=== PATIENT | female | born 1960 | race Caucasian/White ===

== ENCOUNTER 2025-03-19 03:04 | Day surgery (SDC) | payer MEDICARE, SELFPAY ==
[2025-03-05 15:05] VITALS: BMI 22.4
--- OUTSIDE RECORDS SUMMARY | 2025-03-19 03:07 | XMS_ITS | Clinical Summary ---
Author Organization [facility] Address [address] [place] [id number] Care Team Providers [facility] Name Role Phone Anmol Garcia MD Primary Care Provider [phone] Social History Tobacco Use Types Packs/Day Years Used Date Smoking Tobacco: Never Assessed Comments Unknown Sex and Gender Information Value Date Recorded Sex Assigned at Not on file Legal Sex Female 11:30 AM [employer] TE[employer] Gender Identity Not on file Sexual Orientation Not on file Plan of Treatment Health Maintenance Due Date Last Done Comments Colorectal Cancer Screening Colonoscopy (10 Years) 1958 Hepatitis C 01/26/1976 DTaP, Tdap and Td Vaccines (1 - Tdap) 1977 Mammogram Screening 1998 Annual Medicare Wellness Visit 2023 Dexa Scan (General) 2023 Zoster Vaccines (2 of 2) 10/21/2023 08/26/2023 Pneumococcal Vaccine: 50+ Years (2 of 2 - PCV) 04/26/2024 04/26/2023 COVID-19 Vaccine ( season) 2025 07/25/2024, 08/26/2023, 07/27/2022, Additional history exists RSV Immunization or 60+ Years (1 - 1-dose 75+ series) 2033 Meningococcal B Vaccine Aged Out No l onger eligible based on patient's age to complete this topic Meningococcal Vaccine Aged Out No macy johanne eligible based on patient's age to complete this topic RSV Immunizations Under 20 Months Aged Out No longer eligible based on patient's age to complete this topic Insurance MEDICARE [facility] Care Teams [facility] Relationship Specialty Start Date End Date Anmol Garcia MD [address] [place] [phone] PCP - General FAMILY PRACTICE 12/08/24
[2025-03-19 08:12] VITALS: BP 104/73; PULSE 78; RESP 16; TEMP 36.1; O2SAT 100; BMI 22.5
[2025-03-19] MEDS: LACTATED RINGERS 1,000 ML 150 ML IV CONT (08:23)
--- NOTE | 2025-03-19 08:48 | PM.HPGS ---
History of Present Illness History of Present Illness Consent: Risks, benefits, and alternatives have been discussed and questions answered. Patient agrees to proceed with procedure. Chief complaint: colon polyps,chronic cough, Narrative: Adelaida Yousif is a 65 year old female here for egd and colonoscopy, diagnosed with EoE about 15 years ago when presented to another facility with food bolus, using now ppi daily but last few months not working as well and noted again some dysphagia. History of colon polyp in 2019 Review of Systems Review of Systems: All systems reviewed & are unremarkable except as noted in HPI and below PMFSH Past Medical History Medical History (Updated 03/19/25 @ 08:49 by Elijah Lovett MD) Dysphagia Eosinophilic esophagitis Throat clearing Chronic cough GERD (gastroesophageal reflux disease) History of colon polyps Social History Social History Smoking status: Former smoker Tobacco type: cigarettes Alcohol intake: current Substance use: never Substance use type: does not use Meds Home Medications and Allergies Home Medications ?Medication ?Instructions ?Recorded ?Confirmed ?Type omeprazole 40 mg capsule,delayed 40 mg PO BID 3 months #180 caps 12/25/24 03/19/25 Rx release omeprazole 40 mg capsule,delayed 40 mg PO DAILY 12/25/24 03/05/25 History release Allergies Allergy/AdvReac Type Severity Reaction Status Date / Time No Known Allergies Allergy Verified 03/19/25 08:11 Vital Signs Vital Signs - 24 hr 03/19/25 08:12 Temperature 96.9 F L Pulse Rate 78 Respiratory Rate 16 Blood Pressure 104/73 Pulse Oximetry 100 Oxygen Delivery Room Air Exam Const: General: comfortable and no acute distress HENMT: Face/Nose/Sinus: Normal nares present Eyes: General: appearance normal, both eyes and all related structures Neck: Neck: no JVD Resp: Auscultation: clear to auscultation bilaterally Cardio: Rate: regular rate Rhythm: regular rhythm GI: Inspection: non-distended GI Palp: Yes Soft to palpation Skin: General skin exam: normal color Neuro: General: gait normal Speech: normal speech Extrem: General: normal to inspection Psych: Mental Status: mental status grossly normal Assessment and Plan Assessment and plan (1) Eosinophilic esophagitis: Code(s): K20.0 - Eosinophilic esophagitis Status: Acute Assessment and Plan: ppi is not working as well anymore egd today with bx follow-up in office so we can talk about either dupixent or eohilia (2) Dysphagia: Code(s): R13.10 - Dysphagia, unspecified Status: Acute (3) History of colon polyps: Code(s): Z86.0100 - Personal history of colon polyps, unspecified Status: Acute Assessment and Plan: colonoscopy
--- NOTE | 2025-03-19 09:04 | SUR.OPER ---
EGD: [id number] Colon: Start 44
[2025-03-19 09:14] VITALS: BP 110/60; PULSE 62; RESP 20; O2SAT 95
[2025-03-19 09:24] VITALS: BP 102/57; PULSE 60; RESP 21; O2SAT 97
[2025-03-19 09:34] VITALS: BP 109/64; PULSE 61; RESP 21; O2SAT 100
== END 2025-03-19 09:41 | disposition home or self-care (01) ==
PROVIDERS: PCP Family Medicine; Referring Provider Nurse Practitioner Family; Visit Provider Internal Medicine Gastroenterology
PROC: 0DJ08ZZ Inspection of Upper Intestinal Tract, Via Natural or Artificial Opening Endoscopic (ICD-10-PCS; CPT 45378; principal; 2025-03-19 09:00)
DX: Z12.11 Encounter for screening for malignant neoplasm of colon (principal); K22.89 Other specified disease of esophagus; K21.9 Gastro-esophageal reflux disease without esophagitis; R05.3 Chronic cough; Z87.891 Personal history of nicotine dependence; Z86.0100 Personal history of colon polyps, unspecified; Z87.19 Personal history of other diseases of the digestive system
CPT/HCPCS: 43239; G0105; 88305; J2704; J7120

== ENCOUNTER 2025-04-10 12:07 | Outpatient (CLI) | payer MEDICARE, SELFPAY ==
--- NOTE | ~2025-04-10 | MR_ITS ---
MRI of the right wrist Technique: Coronal T1 weighted and proton density fat sat images, and axial and sagittal proton-densi ty and proton-density fat-sat images were acquired. Clinical History: Pain Findings: Scapholunate ligament is intact, and there is no widening of the scapholunate interval. Adolph otriquetral ligament is intact. TFCC is intact. No perforation of the central articular disc. 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 There is mild to moderate degenerative change of the first CMC joint, also joint space narrowing and mild reactive marrow edema. Remaining joint spaces are intact. No eros torsten change. No joint effusion. There is tenosynovitis of the flexor carpi ulnaris tendon. Tendons within the carpal tunnel are intac t. Extensor tendons are intact. No other soft tissue mass or fluid collection evident. IMPRESSION: Tenosynovitis of the flexor carpi ulnaris tendon. 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 Mild to moderate degenerative change of the first C MC joint. Reviewed, dictated and finalized at [facility]. IMPRESSION: Tenosynovitis of the flexor carpi ulnaris tendon. 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 Mild to moderate degenerative change of the first CMC joint.
== END 2025-04-11 07:06 | disposition home or self-care (01) ==
PROVIDERS: PCP Family Medicine
DX: M19.031 Primary osteoarthritis, right wrist (principal)
CPT/HCPCS: 73221